=== PATIENT | female | born 1955 | race Two or more races ===

== ENCOUNTER 2019-11-14 11:34 | Emergency (ER) | payer MEDICAID ==
[~2019-11-14] VITALS: Ht 152.4 cm; Wt 66.7 kg
[2019-11-14 11:42] VITALS: BP 153/69
== END 2019-11-14 12:01 | disposition home or self-care (01) ==
LOC: ER 11:34
DX: J06.9 Acute upper respiratory infection, unspecified (principal); R68.89 Other general symptoms and signs